=== PATIENT | female | born 1995 | race Caucasian/White ===

== ENCOUNTER 2020-03-13 00:31 | Emergency (ER) | payer BC ==
[~2020-03-13] VITALS: Ht 182.9 cm; Wt 95.5 kg
[2020-03-13 00:32] VITALS: BP 139/97
[2020-03-13] MEDS ORDERED: NEXP1IMP SC (00:36)
[2020-03-13] MEDS ORDERED: NS 1,000 ML IV ONE (01:00)
[2020-03-13] MEDS ORDERED: MORPHINE 4 MG/ML 1ML VIAL/SYRINGE (J2270) IV ONE (01:00)
[2020-03-13] MEDS ORDERED: ONDANSETRON 4MG/2ML VIAL IV ONE (01:00)
[2020-03-13 01:12] LABS: BASO % 0.3 % (0.0-1.0); EOS # 0.1 10^3/uL (0.0-0.5); EOS % 0.6 % (0.0-3.0); HEMATOCRIT 42.9 % (36.0-47.0); HEMOGLOBIN 13.2 g/dl (12.0-15.5); LYMPH # 4.2 10^3/uL (1.5-5.0); LYMPH % 34.1 % (24.0-44.0); MEAN CORPUSCULAR HEMOGLOBIN 29.4 pg (27.0-33.0); MEAN CORPUSCULAR HGB CONC 30.8 g/dl (32.0-36.5); MEAN CORPUSCULAR VOLUME 95.5 fl (80.0-96.0); MONO # 0.8 10^3/uL (0.0-0.8); MONO % 6.5 % (0.0-5.0); NEUTROPHILS # 7.2 10^3/uL (1.5-8.5); NEUTROPHILS % 58.3 % (36.0-66.0); PLATELET COUNT, AUTOMATED 257 10^3/uL (150-450); RED BLOOD COUNT 4.49 10^6/uL (4.00-5.40); WHITE BLOOD COUNT 12.4 10^3/uL (4.0-10.0)
[2020-03-13 01:43] LABS: ALBUMIN 3.8 GM/DL (3.2-5.2); ALT/SGPT 15 U/L (12-78); BILIRUBIN,DIRECT < 0.1 MG/DL (0.0-0.2); BILIRUBIN,TOTAL 0.3 MG/DL (0.2-1.0); LIPASE 171 U/L (73-393); TOTAL PROTEIN 8.1 GM/DL (6.4-8.2)
--- NOTE | 2020-03-13 02:05 | REPVR ---
PROCEDURE INFORMATION: Exam: US Non-obstetric Pelvis; Complete Exam date and time: 03/13/20 (1:11am) Age: 24 years old Clinical indication: Sudden pelvic pain TECHNIQUE: Imaging protocol: Transabdominal and transvaginal pelvic non-obstetric ultrasound. Complete examination. Real time ultrasound with image documentation. COMPARISON: No relevant prior studies available FINDINGS: The LMP is reported to be: 02/05/20 The uterus is anteverted, measuring 8.9 x 3.9 x 4.5 cm in dimensions. No uterine mass is seen. The endometrium is thin (5 mm thickness). The right ovary measures 4.4 x 3.0 x 3.0 cm in size, with no evidence of torsion. Simple right ovarian cyst (3.8 x 2.7 x 2.9 cm sizse) (3.1 cm avg. size). The left ovary is not visualized (probably obscured by bowel gas). No free pelvic fluid is seen. No solid adnexal masses. IMPRESSION: No acute pathology. No solid pelvic mass. No free fluid. Simple right ovarian cyst (3.1 cm avg. size). The left ovary is not visualized. Electronically signed by: Safia Mccullough On 03/13/2020 02:04:54 AM
[2020-03-13] MEDS ORDERED: ISOVUE-370 76% 100ML VIAL As Ordered ONE (02:12)
--- NOTE | 2020-03-13 03:44 | REPVR ---
PROCEDURE INFORMATION: Exam: CT Abdomen and Pelvis with Contrast Exam date and time: 03/13/20 (2:12am) Age: 24 years old Clinical indication: Sudden severe abdominal pain. Elevated WBC count. TECHNIQUE: Imaging protocol: Computed tomography of the abdomen and pelvis with intravenous contrast. Radiation optimization: All CT scans at this facility use at least one of these dose optimization techniques: automated exposure control; mA and/or kV adjustment per patient size (includes targeted exams where dose is matched to clinical indication); or iterative reconstruction. Contrast material: Isovue 370 Contrast volume: 100 ml Contrast route: IV COMPARISON: US PELVIS of 03/13/20 FINDINGS: Liver: Normal. No solid mass. Gallbladder and bile ducts: Normal. No calcified stones. No ductal dilatation. Pancreas: Normal. No ductal dilatation. Spleen: Normal. No splenomegaly. Adrenal glands: Normal. No mass. Kidneys and ureters: Normal. No hydronephrosis. Stomach and bowel: Unremarkable. No bowel obstruction. No mucosal thickening. Appendix: No evidence of appendicitis. Intraperitoneal space: Unremarkable. No free air. No significant fluid collection. Vasculature: Unremarkable. No abdominal aortic aneurysm. Lymph nodes: Unremarkable. No enlarged lymph nodes. Urinary bladder: Unremarkable as visualized. Reproductive: The uterus tilts to the right of midline. Right adnexal cyst (3.8 x 2.1 x 2.8 cm size) (2.9 cm avg. size). Bones/joints: Unremarkable. No acute fracture. Soft tissues: Unremarkable. IMPRESSION: No acute findings. No acute bowel pathology. No abscess. No hydronephrosis. Probable large right ovarian cyst (2.9 cm avg. size). Electronically signed by: Safia Mccullough On 03/13/2020 03:44:02 AM
[2020-03-13] MEDS ORDERED: ONDA4TAB6 PO (04:10)
== END 2020-03-13 04:15 | disposition home or self-care (01) ==
LOC: M ED 00:31
DX: N83.201 Unspecified ovarian cyst, right side (principal); Z79.3 Long term (current) use of hormonal contraceptives
CPT/HCPCS: 74177; 76830; 76856; 80047; 80076; 81001; 83690; 84702; 85025; 93976; 96361; 96374; 96375; 99283; J2270; J2405; Q9967

== ENCOUNTER 2020-07-15 11:43 | Emergency (ER) | payer BC ==
[~2020-07-15] VITALS: Ht 182.9 cm; Wt 95.9 kg
[~2020-07-15 11:43] MED LIST: NEXP1IMP SC; ONDA4TAB6 PO
[2020-07-15] MEDS ORDERED: ACETAMINOPHEN 500 MG TAB PO ONE (13:55)
[2020-07-15] MEDS ORDERED: LIDOCAINE 5% (LIDODERM) PATCH TD ONE (13:55)
[2020-07-15 14:19] LABS: BASO % 0.2 % (0.0-1.0); EOS % 0.5 % (0.0-3.0); HEMATOCRIT 41.4 % (36.0-47.0); HEMOGLOBIN 13.2 g/dl (12.0-15.5); LYMPH # 2.6 10^3/uL (1.5-5.0); LYMPH % 30.8 % (24.0-44.0); MEAN CORPUSCULAR HEMOGLOBIN 29.7 pg (27.0-33.0); MEAN CORPUSCULAR HGB CONC 31.9 g/dl (32.0-36.5); MEAN CORPUSCULAR VOLUME 93.2 fl (80.0-96.0); MONO # 0.5 10^3/uL (0.0-0.8); MONO % 5.7 % (2.0-8.0); NEUTROPHILS # 5.2 10^3/uL (1.5-8.5); NEUTROPHILS % 62.6 % (36.0-66.0); PLATELET COUNT, AUTOMATED 284 10^3/uL (150-450); RED BLOOD COUNT 4.44 10^6/uL (4.00-5.40); WHITE BLOOD COUNT 8.3 10^3/uL (4.0-10.0)
[2020-07-15] MEDS ORDERED: KETOROLAC 30 MG/ML 1ML VIAL IM ONE (14:35)
[2020-07-15] MEDS ORDERED: IBUP80TA PO (15:51)
[2020-07-15] MEDS ORDERED: CYCL5TAB PO (15:51)
[2020-07-15] MEDS ORDERED: LIDO5DIS41 TOP (15:51)
--- NOTE | 2020-07-15 15:52 | REP ---
INDICATION: midline low back pain x14 days. COMPARISON: None. TECHNIQUE: Five views of the lumbar spine are provided FINDINGS: . lumbar vertebral body heights are preserved. There is straightening of the normal lumbar lordosis. No fracture or collapse is seen. Disc spaces are maintained. There is no evidence of spondylolysis or spondylolisthesis. Facets are normally aligned. Psoas margins are symmetric. Sacrum and SI joints are unremarkable. IMPRESSION: Straightening. Otherwise negative radiographs of the lumbar spine. <Electronically signed by Rex Campos > 07/15/20 [id number]
[2020-07-15 16:08] VITALS: BP 142/92
[2020-07-16] MEDS ORDERED: **NOTE PATIENT COMMENT** MISC XX ONE (02:00)
== END 2020-07-15 16:09 | disposition home or self-care (01) ==
LOC: M ED 11:43
DX: M62.830 Muscle spasm of back (principal); N93.8 Other specified abnormal uterine and vaginal bleeding; M54.5 Low back pain; G89.29 Other chronic pain; Z87.442 Personal history of urinary calculi; Z87.440 Personal history of urinary (tract) infections; Z87.42 Personal history of other diseases of the female genital tract; Z97.5 Presence of (intrauterine) contraceptive device
CPT/HCPCS: 36415; 72110; 80047; 84702; 85025; 96372; 99283; J1885